=== PATIENT | female | born 1965 | race American Indian/Alaskan Native ===

== ENCOUNTER 2017-09-03 15:59 | Inpatient (IN) | payer OTHER ==
[2017-09-03] MEDS ORDERED: ZOFRAN IV ONE ×2 (17:38→21:00)
[2017-09-03] MEDS ORDERED: NACL 0.9% 1000 ML 2,000 ML IV ONE (17:38)
[2017-09-03] MEDS ORDERED: APRESOLINE IV ONE ×3 (17:44→21:00)
[2017-09-03] MEDS ORDERED: BENADRYL IV ONE ×2 (17:44→21:00)
[2017-09-03] MEDS ORDERED: NACL 0.9% 1000 ML 500 ML IV ONE (17:45)
[2017-09-03 17:58] LABS: Basophils % (Auto) 0.4 % (0.0-1.8); Eosinophils % (Auto) 0.1 % (0.0-4.3); Hematocrit 38.6 % (30.3-42.9); Hemoglobin 12.6 gm/dl (10.1-14.3); Lymphocytes # (Auto) 1.6 K/mm3 (1.2-5.4); Lymphocytes % (Auto) 20.3 % (13.4-35.0); Mean Corpuscular HGB Conc 33 % (30-34); Mean Corpuscular Hemoglobin 28 pg (28-32); Mean Corpuscular Volume 85 fl (79-97); Monocytes # (Auto) 0.4 K/mm3 (0.0-0.8); Monocytes % (Auto) 5.3 % (0.0-7.3); Platelet Count 138 K/mm3 (140-440); Red Blood Count 4.53 M/mm3 (3.65-5.03); Red Cell Distribution Width 16.5 % (13.2-15.2)
[2017-09-03 18:16] LABS: Creatine Kinase MB 2.3 ng/mL (0.0-4.0)
[2017-09-03 18:17] LABS: BUN/Creatinine Ratio 14; Blood Urea Nitrogen 11 mg/dL (7-17); Calcium 8.8 mg/dL (8.4-10.2); Hemolysis Index 26
[2017-09-03 18:18] LABS: Alanine Aminotransferase 22 units/L (7-56); Albumin 3.7 g/dL (3.9-5); Lipase 13 units/L (13-60)
--- NOTE | 2017-09-03 18:32 | Cat Scan Report ---
FINAL REPORT EXAM: CT ABDOMEN PELVIS WO CON HISTORY: abdominal pain, n/v/d 1month TECHNIQUE: Standard unenhanced CT of the abdomen and pelvis. Coronal and sagittal reconstruction was also performed. PRIORS: None. FINDINGS: Within the abdomen, the liver, spleen, pancreas, gallbladder, adrenal glands, and kidneys are unremarkable. No evidence for retroperitoneal or pelvic lymphadenopathy is seen. No evidence for renal or ureteral calculi or hydronephrosis is present bilaterally. Moderate stool is present throughout the colon. The bowel loops have normal caliber. No soft tissue mass, fluid collection, inflammatory change, or free air is seen within the abdomen or pelvis. The appendix is tony in size but contains at least 2 focal calcifications suggesting small appendicoliths l. Within the pelvis, the bladder is unremarkable. The uterus is normal. No evidence for mass or lymphadenopathy is seen in the pelvis. Images through the upper abdomen include the lung bases which are expanded and clear. Left breast implant is in place. Small hiatal hernia is seen. Bony structures show facet joint degenerative changes at L5-S1. IMPRESSION: 1. no acute intra-abdominal process noted. 2. Two appendicoliths are noted within the appendix which is otherwise normal in appearance.
[2017-09-03 18:38] LABS: Bilirubin,Direct < 0.2 mg/dL (0-0.2)
[2017-09-03 19:17] LABS: Bacteria,Urine 1+ /HPF (Negative); Bilirubin,Urine NEG (Negative); Blood,Urine SM (Negative); Color,Urine Straw (Yellow); Protein,Urine <15 mg/dL mg/dL (Negative); Urobilinogen,Urine < 2.0 mg/dL (<2.0); WBC,Urine < 1.0 /HPF (0.0-6.0)
--- NOTE | 2017-09-03 20:39 | Emergency Department Report ---
HPI - General Chief Complaint: Dizziness Time Seen by Provider: 09/03/17 17:38 - HPI HPI: The patient is a 51-year-old female with a significant history of breast cancer , on chemotherapy, who presents for evaluation of dizziness and vomiting. The patient states that at noon earlier today, approximately 4 hours prior to my evaluation, she experienced the insidious onset of lightheadedness, constant since onset, currently mild in severity, exacerbated with position changes, and associated with nausea and 3 episodes of nonbilious, nonbloody emesis. The patient denies fever, head injury, headache, neck pain, neck stiffness, chest pain, abdominal pain, vision or hearing changes, smell or taste changes, paresthesias, facial drooping, slurred speech, seizure-like activity, urine or bowel incontinence or retention, or other focal neurological deficit. ED Past Medical Hx - Past Medical History Hx Hypertension: Yes Hx of Cancer: Yes (breast) - Surgical History Additional Surgical History: breast reduction - Social History Smoking Status: Never Smoker ED Review of Systems ROS: Stated complaint: HYPERTENSION Other details as noted in HPI Constitutional: reports dizziness denies: fever ENT: denies: throat or neck pain Respiratory: denies: cough, shortness of breath Cardiovascular: denies: chest pain Endocrine: denies unexplained weight loss or gain Gastrointestinal: denies: abdominal pain reports nausea and vomiting Genitourinary: denies: dysuria Musculoskeletal: denies: leg swelling Skin: denies: rash Neurological: denies: headache Hematological/Lymphatic: denies: easy bleeding or easy bruising Psych: denies sadness or hopelessness Physical Exam - Physical Exam Vital Signs: Vital Signs 09/03/17 09/03/17 09/03/17 17:18 19:34 19:45 Pulse Rate 56 L 51 L 51 L Respiratory 18 16 14 Rate Blood Pressure 182/92 177/91 O2 Sat by Pulse 100 Oximetry 09/03/17 20:00 Pulse Rate 51 L Respiratory 13 Rate Blood Pressure 179/92 O2 Sat by Pulse Oximetry Physical Exam: General: well-nourished, well-developed, no acute distress Head: Normocephalic, atraumatic Eyes: normal sclera ENT: Mucous membranes are pale and dry Neck: No neck stiffness, no cervical adenopathy Respiratory: Breath sounds equal bilaterally, no wheezing, rales, or rhonchi Cardio: S1 and S2 present, no murmurs, rubs, gallops, capillary refill is delayed Abdomen: Normoactive bowel sounds, soft abdomen, no rigidity, no guarding or rebound tenderness Chest WALL/Back: No tenderness to palpation of the chest wall, no CVA tenderness with percussion Musc: No pitting edema Skin: No rash Neuro: alert oriented x4, normal cognition, speech normal, PERRL, EOM intact, no facial drooping, no uvula or tongue deviation on protrusion, no deficit with rotation of neck or shoulder shrug, no obvious gross motor deficit in the upper or lower extremities with flexion or extension at the shoulder, elbow, wrist, hip, knee, or ankle bilaterally, no obvious gross sensation deficit to crude touch or 2 pt discrimination, 2+ symmetric reflexes on DTR testing, no coordination deficit with [id number] or [id number] testing, Babinski downgoing, romberg negative, patient able to to ambulate without abnormal gait Psych: Normal affect ED Course Vital Signs 09/03/17 09/03/17 09/03/17 17:18 19:34 19:45 Pulse Rate 56 L 51 L 51 L Respiratory 18 16 14 Rate Blood Pressure 182/92 177/91 O2 Sat by Pulse 100 Oximetry 09/03/17 20:00 Pulse Rate 51 L Respiratory 13 Rate Blood Pressure 179/92 O2 Sat by Pulse Oximetry ED Medical Decision Making - Lab Data Result diagrams: 09/03/17 17:44 09/03/17 17:44 - Medical Decision Making The patient was seen and examined by myself. The patient is placed on a monitoring and evaluation advisor and continuous pulse ox. On initial evaluation, the patient was found to be in no distress. Evaluation orders are placed. IV access is established and the patient is given 500cc normal saline fluid bolus and Zofran for nausea. Lab results revealed elevated CK level of 1500, consistent with acute mild rhabdomyolysis, and otherwise labs were unrevealing, including WBC, hemoglobin, hematocrit, electrolytes, renal function, LFTs, lipase. The patient is given additional normal saline fluid bolus for treatment of her rhabdomyolysis. Dr. Sheikh the on-call [place] physician was contacted. She agreed to arrange transfer the patient to [facility]. She contacted physician Dr. Whyte, whom agreed to admit the patient. The patient was transferred to [facility] in guarded condition. Critical care attestation.: If time is entered above; I have spent that time in minutes in the direct care of this critically ill patient, excluding procedure time. ED Disposition Clinical Impression: Hypertensive urgency, Orthostatic dizziness, Nausea and vomiting in adult Rhabdomyolysis Qualifiers: Rhabdomyolysis type: non-traumatic Qualified Code(s): M62.82 - Rhabdomyolysis Disposition: DC/TX-70 ANOTHER TYPE HLTHCARE Is pt being admited?: No Does the pt Need Aspirin: No Condition: Fair Referrals: PRIMARY CARE, [Primary Care Provider] - 3-5 Days Time of Disposition: 20:30
[2017-09-03] MEDS ORDERED: NACL 0.9% 1000 ML 1,000 ML IV ONE (20:52)
[2017-09-04] MEDS ORDERED: ZOFRAN IV PRN (00:17)
[2017-09-04] MEDS ORDERED: SODIUM CHLORIDE FLUSH SYRINGE 10 ML IV PRN (00:17)
[2017-09-04] MEDS ORDERED: MORPHINE IV PRN (00:17)
--- NOTE | 2017-09-04 00:23 | History and Physical Report ---
History of Present Illness Date of examination: 09/04/17 History of present illness: 51-year-old woman with a history of breast cancer comes emergency room with complaints of nausea and vomiting and diarrhea that started on Sunday. She felt better on Sunday and went to work but today her symptoms return. Also complaining of left shoulder pain over the llast 2 days. Also complaining of feeling dizzy, no recent antibiotic use. Patient returned from [facility] one month ago Review of systems Constitutional: no weight loss, chills Ears, eyes, nose, mouth and throat: no nasal congestion, no nasal discharge, no sinus pressure, no vision change, no red eye. Neck: No neck pain or rigidity. Cardiovascular: no chest pain, palpitations Respiratory: No cough, shortness of breath Gastrointestinal: no abdominal pain, hematochezia Genitourinary : no dysuria, frequency , no hematuria Musculoskeletal: no joint swelling or muscle ache Integumentary: no rash, no pruritis Neurological: no parathesias, no numbness, no focal weakness Endocrine: no cold or heat intolerance, no polyuria or polydipsia Hematologic/Lymphatic: no easy bruising, no easy bleeding, no gland swelling Allergic/Immunologic: no urticaria, no angioedema. PAST MEDICAL HISTORY: Breast cancer PAST SURGICAL HISTORY: Masectomy SOCIAL HISTORY: Denies alcohol, tobacco, drugs FAMILY HISTORY: Extension Medications and Allergies Allergies Allergy/AdvReac Type Severity Reaction Status Date / Time Iodinated Contrast- Oral and Allergy Unknown Verified 09/03/17 17:21 IV Dye hydromorphone [From Dilaudid] AdvReac Itching Verified 09/03/17 17:21 Active Meds: Active Medications Acetaminophen (Tylenol) 650 mg PO Q4H PRN PRN Reason: Pain MILD(1-3)/Fever >100.5/ADEN Enoxaparin Sodium (Lovenox) 30 mg SUB-Q QDAY JANNET Sodium Chloride (Nacl 0.9% 1000 Ml) 1,000 mls @ 150 mls/hr IV DIRECT JANNET Morphine Sulfate (Morphine) 2 mg IV Q4H PRN PRN Reason: Pain, Moderate (4-6) Ondansetron HCl (Zofran) 4 mg IV Q4H PRN PRN Reason: Nausea And Vomiting Sodium Chloride (Sodium Chloride Flush Syringe 10 Ml) 10 ml IV BID JANNET Sodium Chloride (Sodium Chloride Flush Syringe 10 Ml) 10 ml IV PRN PRN PRN Reason: LINE FLUSH Exam - Physical Exam Narrative exam: Gen. appearance: Patient lying in bed, no apparent distress HEENT: Normocephalic, atraumatic, pupils equally round and reactive to light, extraocular movement intact, and no sclericterus,. No JVD or thyromegaly or nodule,neck supple, no carotid bruit ,mucous membranes moist, no exudate or erythema Heart: S1, S2, regular rate and rhythm Lungs: Clear to auscultation bilaterally, breathing comfortable Abdomen: Positive bowel sounds, nontender, nondistended, no organomegaly Extremity: No edema, cyanosis, clubbing Skin: No rash, nodules, warm, dry Neuro: Oriented 3, cranial nerves II-12 intact, speech is fluent, motor and sensory intact - Constitutional Vitals: Temp Pulse Resp BP Pulse Ox 50 L 13 179/100 100 09/03/17 21:35 09/03/17 20:00 09/03/17 21:35 09/03/17 17:18 Results - Labs CBC & Chem 7: 09/03/17 17:44 09/03/17 17:44 Labs: Abnormal lab results 09/03/17 09/03/17 09/03/17 Range/Units 17:44 17:44 17:44 RDW 16.5 H (13.2-15.2) % Plt Count 138 L (140-440) K/mm3 Seg Neutrophils % 73.9 H (40.0-70.0) % Carbon Dioxide 21 L (22-30) mmol/L Glucose 110 H (65-100) mg/dL Total Creatine Kinase 1585 H (30-135) units/L Albumin 3.7 L (3.9-5) g/dL - Imaging and Cardiology CT scan - abdomen: report reviewed CT scan - pelvis: report reviewed Assessment and Plan Assessment Gastroenteritis, ? viral Left arm pain History of breast cancer thrombocytopenia Plan Admit to medicine Start IV fluids, check stool for cultures Obtain x-ray of the lef shoulder, check cardiac enzymes DVT prophylaxis
[2017-09-04] MEDS: NACL 0.9% 1000 ML 1,000 ML IV SCH ×2 (02:45→19:40)
[2017-09-04] MEDS: TYLENOL PO PRN (04:13)
[2017-09-04 08:20] LABS: Creatine Kinase MB 2.1 ng/mL (0.0-4.0)
--- NOTE | 2017-09-04 08:36 | XRay Report ---
LEFT SHOULDER, 3 views: History: Pain, breast cancer. Routine views demonstrate normal bony and soft tissue structures with normal joint alignment of the shoulder. No bony lesion is appreciated on x-ray. IMPRESSION: Left shoulder within normal limits.
[2017-09-04] MEDS: LOVENOX SUB-Q SCH (11:25)
[2017-09-04] MEDS: SODIUM CHLORIDE FLUSH SYRINGE 10 ML IV SCH ×2 (11:26→23:27)
[2017-09-04 12:22] LABS: Creatine Kinase MB 1.9 ng/mL (0.0-4.0)
--- NOTE | 2017-09-04 15:46 | Progress Note ---
Assessment and Plan Assessment and plan: Patient is 51 yo woman with a history of left breast cancer on chemotherapy and hypertension who pw n/v/d which has resolved. Also, pt has history of travel to [facility] 1 month ago. She was admitted for rhabdo, cpk 1585. D/w Dr. Cameron from [place]. -Acute viral AGE: treat symptomatically -Rhabdomyolysis: serial cpk, which i ordered today, slightly improved -Breast cancer: continue home regimen -DVT prophylaxis: sq lovenox full code disposition: d/c once cpk levels under 1000 History Interval history: Patient was seen and examined. Follow-up on current diagnosis. Overnight uneventful. Patient denies any chest pain, shortness breath, nausea/vomiting or severe headaches. Imaging, nursing note, chart, labs and old chart reviewed. Discussed with patient. Hospitalist Physical - Physical exam Narrative exam: GEN: WDWN, NAD, Awake, Alert, Orientated HEENT: NCAT, EOMI, PERRL, OP Clear NECK: supple, no adenopathy, no thyromegaly, no JVD CVS/HEART: RRR, normal S1S2, pulses present bilaterally CHEST/LUNGS: CTA B, Symmetrical chest expansion, good air entry bilaterally GI/Abdomen: soft, NTND, good bowel sounds, no guarding or rebound /Bladder: no suprapubic tenderness, no CVA or paraspinal tenderness EXT/Skin: no c/c/e, no obvious rash MSK: FROM x 4 Neuro: CN 2-12 grossly intact, no new focal deficits Psych: calm - Constitutional Vitals: Temp Pulse Resp BP Pulse Ox 98.0 F 51 L 18 143/85 100 09/04/17 07:58 09/04/17 07:58 09/04/17 07:58 09/04/17 07:58 09/04/17 10:05 Results - Labs CBC & Chem 7: 09/03/17 17:44 09/03/17 17:44 Labs: Laboratory Last Values WBC 7.9 K/mm3 (4.5-11.0) 09/03/17 17:44 RBC 4.53 M/mm3 (3.65-5.03) 09/03/17 17:44 Hgb 12.6 gm/dl (10.1-14.3) 09/03/17 17:44 Hct 38.6 % (30.3-42.9) 09/03/17 17:44 MCV 85 fl (79-97) 09/03/17 17:44 MCH 28 pg (28-32) 09/03/17 17:44 MCHC 33 % (30-34) 09/03/17 17:44 RDW 16.5 % (13.2-15.2) H 09/03/17 17:44 Plt Count 138 K/mm3 (140-440) L 09/03/17 17:44 Lymph % (Auto) 20.3 % (13.4-35.0) 09/03/17 17:44 [place] % (Auto) 5.3 % (0.0-7.3) 09/03/17 17:44 Eos % (Auto) 0.1 % (0.0-4.3) 09/03/17 17:44 Baso % (Auto) 0.4 % (0.0-1.8) 09/03/17 17:44 Lymph # 1.6 K/mm3 (1.2-5.4) 09/03/17 17:44 [place] # 0.4 K/mm3 (0.0-0.8) 09/03/17 17:44 Eos # 0.0 K/mm3 (0.0-0.4) 09/03/17 17:44 Baso # 0.0 K/mm3 (0.0-0.1) 09/03/17 17:44 Seg Neutrophils % 73.9 % (40.0-70.0) H 09/03/17 17:44 Seg Neutrophils # 5.9 K/mm3 (1.8-7.7) 09/03/17 17:44 Sodium 139 mmol/L (137-145) 09/03/17 17:44 Potassium 3.7 mmol/L (3.6-5.0) 09/03/17 17:44 Chloride 103.6 mmol/L (98-107) 09/03/17 17:44 Carbon Dioxide 21 mmol/L (22-30) L 09/03/17 17:44 Anion Gap 18 mmol/L 09/03/17 17:44 BUN 11 mg/dL (7-17) 09/03/17 17:44 Creatinine 0.8 mg/dL (0.7-1.2) 09/03/17 17:44 Estimated GFR > 60 ml/min 09/03/17 17:44 BUN/Creatinine Ratio 14 % 09/03/17 17:44 Glucose 110 mg/dL (65-100) H 09/03/17 17:44 Calcium 8.8 mg/dL (8.4-10.2) 09/03/17 17:44 Total Bilirubin 0.20 mg/dL (0.1-1.2) 09/03/17 17:44 Direct Bilirubin < 0.2 mg/dL (0-0.2) 09/03/17 17:44 Indirect Bilirubin 0.0 mg/dL 09/03/17 17:44 AST 39 units/L (5-40) 09/03/17 17:44 ALT 22 units/L (7-56) 09/03/17 17:44 Alkaline Phosphatase 91 units/L (35-129) 09/03/17 17:44 Total Creatine Kinase 1419 units/L (30-135) H 09/04/17 11:20 CK-MB (CK-2) 1.9 ng/mL (0.0-4.0) 09/04/17 11:20 CK-MB (CK-2) Rel Index 0.1 (0-4) 09/04/17 11:20 Troponin T < 0.010 ng/mL (0.00-0.029) 09/04/17 11:20 Total Protein 7.5 g/dL (6.3-8.2) 09/03/17 17:44 Albumin 3.7 g/dL (3.9-5) L 09/03/17 17:44 Albumin/Globulin Ratio 1.0 % 09/03/17 17:44 Lipase 13 units/L (13-60) 09/03/17 17:44 HCG, Qual Negative (Negative) 09/03/17 19:21 Urine Color Straw (Yellow) 09/03/17 18:54 Urine Turbidity Clear (Clear) 09/03/17 18:54 Urine pH 7.0 (5.0-7.0) 09/03/17 18:54 Ur Specific [place] 1.004 (1.003-1.030) 09/03/17 18:54 Urine Protein <15 mg/dl mg/dL (Negative) 09/03/17 18:54 Urine Glucose (UA) Neg mg/dL (Negative) 09/03/17 18:54 Urine Ketones Neg mg/dL (Negative) 09/03/17 18:54 Urine Blood Sm (Negative) 09/03/17 18:54 Urine Nitrite Neg (Negative) 09/03/17 18:54 Urine Bilirubin Neg (Negative) 09/03/17 18:54 Urine Urobilinogen < 2.0 mg/dL (<2.0) 09/03/17 18:54 Ur Leukocyte Esterase Neg (Negative) 09/03/17 18:54 Urine WBC (Auto) < 1.0 /HPF (0.0-6.0) 09/03/17 18:54 Urine RBC (Auto) 1.0 /HPF (0.0-6.0) 09/03/17 18:54 Urine Bacteria (Auto) 1+ /HPF (Negative) 09/03/17 18:54
[2017-09-05] MEDS: NACL 0.9% 1000 ML 1,000 ML IV SCH (02:43)
[2017-09-05 06:32] LABS: Basophils % (Auto) 0.1 % (0.0-1.8); Eosinophils # (Auto) 0.1 K/mm3 (0.0-0.4); Hematocrit 39.1 % (30.3-42.9); Hemoglobin 12.5 gm/dl (10.1-14.3); Lymphocytes # (Auto) 2.5 K/mm3 (1.2-5.4); Lymphocytes % (Auto) 45.1 % (13.4-35.0); Mean Corpuscular HGB Conc 32 % (30-34); Mean Corpuscular Hemoglobin 27 pg (28-32); Mean Corpuscular Volume 85 fl (79-97); Monocytes # (Auto) 0.5 K/mm3 (0.0-0.8); Monocytes % (Auto) 8.5 % (0.0-7.3); Platelet Count 124 K/mm3 (140-440); Red Blood Count 4.58 M/mm3 (3.65-5.03); Red Cell Distribution Width 16.8 % (13.2-15.2)
[2017-09-05 06:54] LABS: BUN/Creatinine Ratio 9; Blood Urea Nitrogen 7 mg/dL (7-17); Calcium 8.4 mg/dL (8.4-10.2); Hemolysis Index 1
[2017-09-05] MEDS: TYLENOL PO PRN (08:44)
[2017-09-05] MEDS: LOVENOX SUB-Q SCH (10:14)
[2017-09-05] MEDS: SODIUM CHLORIDE FLUSH SYRINGE 10 ML IV SCH (10:19)
--- NOTE | 2017-09-05 12:40 | Discharge Summary ---
Providers - Providers Date of Admission: 09/04/17 00:17 Date of discharge: 09/05/17 Attending physician: KAILA SANCHEZ Primary care physician: LAND LEASING INFORMATION CLERK Hospitalization Condition: Stable Hospital course: Patient is 51 yo woman with a history of left breast cancer on chemotherapy and hypertension who pw n/v/d which has resolved. Also, pt has history of travel to [facility] 1 month ago. She was admitted for rhabdo, cpk 1585. D/w Dr. Cameron from [place]. -Acute viral AGE: treat symptomatically -Rhabdomyolysis: serial cpk, which i ordered today, slightly improved -Breast cancer: continue home regimen -hypertension, uncontrolled on nss at 150ml/hr -DVT prophylaxis: sq lovenox full code disposition: d/c once cpk levels under 1000 Disposition: DC- TO HOME OR SELFCARE Time spent for discharge: 34 minutes Core Measure Documentation - Palliative Care Palliative Care/ Comfort Measures: Not Applicable - Core Measures Any of the following diagnoses?: none - VTE Discharge Requirements Deep Vein Thrombosis/Pulmonary Embolism Present on Admission: No Has pt received <5 days of overlap therapy or INR<2.0: No Anticoagulant overlap therapy prescribed at discharge: No Contraindication No Overlap Therapy order at DC: Not Indicated Exam - Physical Exam Narrative exam: bp rechecked after nss at 150ml/hr stopped was 162/84 GEN: WDWN, NAD, Awake, Alert, Orientated HEENT: NCAT, EOMI, PERRL, OP Clear NECK: supple, no adenopathy, no thyromegaly, no JVD CVS/HEART: RRR, normal S1S2, pulses present bilaterally CHEST/LUNGS: CTA B, Symmetrical chest expansion, good air entry bilaterally GI/Abdomen: soft, NTND, good bowel sounds, no guarding or rebound /Bladder: no suprapubic tenderness, no CVA or paraspinal tenderness EXT/Skin: no c/c/e, no obvious rash MSK: FROM x 4 Neuro: CN 2-12 grossly intact, no new focal deficits Psych: calm - Constitutional Vitals: Temp Pulse Resp BP Pulse Ox 98.4 F 56 L 20 201/105 99 09/05/17 07:11 09/05/17 08:00 09/05/17 08:44 09/05/17 07:11 09/05/17 07:11 Plan Activity: other (no strenous activity until cleared by pcp) Diet: low salt Special Instructions: record daily BP diary Additional Instructions: see [place] PCP as soon as possible Follow up with: PRIMARY CAREMD [Primary Care Provider] - 3-5 Days
[2017-09-05] MEDS ORDERED: BISOPROLOL 5 MG PO SCH (12:45)
[2017-09-05] MEDS ORDERED: [UNRECOGNIZED DRUG - OTHER] PO SCH (12:45)
[2017-09-05] MEDS ORDERED: EXEMESTANE PO SCH (12:45)
[2017-09-05] MEDS ORDERED: EFFEXOR XR PO SCH (15:00)
[2017-09-05 15:47] VITALS: BP 179/97
== END 2017-09-05 16:45 | disposition home or self-care (01) | DRG 558 ==
LOC: ED 15:59 → 3A 09-04 00:17
PROVIDERS: ADMIT Internal Medicine; ATTEND Internal Medicine
DX: M62.82 Rhabdomyolysis (principal); I10 Essential (primary) hypertension; D69.6 Thrombocytopenia, unspecified; A08.4 Viral intestinal infection, unspecified; I16.0 Hypertensive urgency; Z90.10 Acquired absence of unspecified breast and nipple; Z90.49 Acquired absence of other specified parts of digestive tract; Z92.21 Personal history of antineoplastic chemotherapy; Z85.3 Personal history of malignant neoplasm of breast
CPT/HCPCS: 36415; 74176; 80048; 80074; 81001; 82550; 82553; 83690; 84484; 84703; 85007; 85025; 87045; 93005; 93010; J0360; J1200; J1650; J2270; J2405; J7030